=== PATIENT | male | born 1960 ===

== ENCOUNTER 2017-05-24 10:01 | Emergency (ER) | payer OTHER ==
[2017-05-24] MEDS ORDERED: Lidocaine 2% Jelly (Uro-Jet) TOP ONE (11:25)
--- NOTE | 2017-05-24 12:39 | C.PDOC ---
History Of Present Illness 57 year old male presents to the ED for evaluation of rectal pain which began after he had a hard bowel movement yesterday. No bleeding. No abdominal pain, nausea, or vomiting. RECTAL PAIN SINCE YEST S/P HARD BM. NO BLEEDING. 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 NO EXT HEMORRHOID. +HARD STOOL IN VAULT NO BRBPR Time Seen by Provider: 05/24/17 10:45 Chief Complaint (Nursing): GI Problem History Per: Patient History/Exam Limitations: no limitations Onset/Duration Of Symptoms: Hrs Current Symptoms Are (Timing): Still Present Additional History Per: Patient Past Medical History Reviewed: Historical Data, Nursing Documentation, Vital Signs Vital Signs: Last Vital Signs Temp 97.5 F L 05/24/17 12:58 Pulse 52 L 05/24/17 12:58 Resp 18 05/24/17 12:58 BP 130/68 05/24/17 12:58 Pulse Ox 99 05/24/17 12:58 - Medical History PMH: No Chronic Diseases Surgical History: No Surg Hx Family History: States: Unknown Family Hx - Social History Hx Tobacco Use: Yes (sometimes) Hx Alcohol Use: Yes Hx Substance Use: No - Immunization History Hx Tetanus Toxoid Vaccination: No Hx Influenza Vaccination: No Hx Pneumococcal Vaccination: No Review Of Systems Gastrointestinal: Positive for: Rectal Pain. Negative for: Nausea, Vomiting, Abdominal Pain Physical Exam - Physical Exam Appears: Non-toxic, No Acute Distress Skin: Normal Color, Warm, Dry Oral Mucosa: Moist Gastrointestinal/Abdominal: Soft, No Tenderness, No Guarding, No Rebound Rectal: No Hemorrhoids (external ), Other (hard stool in vault no bright red blood per rectum. RN Outlaw supplemental nurse ) Extremity: Normal ROM, Capillary Refill (less than 2 seconds) Neurological/Psych: Oriented x3, Normal Speech, Normal Cognition Gait: Steady ED Course And Treatment O2 Sat by Pulse Oximetry: 97 (on RA) Pulse Ox Interpretation: Normal Progress Note: Xylocaine TOP administered. Disposition Counseled Patient/Family Regarding: Diagnosis, Need For Followup, Rx Given - Disposition Referrals: [facility] [Outside] [facility] [Outside] Disposition: HOME/ ROUTINE Disposition Time: 12:36 Condition: GOOD Prescriptions: Docusate Sodium [Colace] 100 mg PO BID PRN #30 capsule PRN Reason: Constipation Glycerin [Glycerin Adult Suppository] 1 sup RC DAILY PRN #30 sup PRN Reason: Constipation Magnesium Citrate [Good [facility] Magnesium Citrate] 300 ml PO ONCE #1 bottle Instructions: Constipation (ED), High Fiber Diet (ED) Forms: [employer] (Malay) Print Language: ESTONIAN - Clinical Impression Clinical Impression: Constipated, Rectal pain - Scribe Statement The provider has reviewed the documentation as recorded by the Scribe (Shea Ahmadi) Provider Attestation: All medical record entries made by the Scribe were at my direction and personally dictated by me. I have reviewed the chart and agree that the record accurately reflects my personal performance of the history, physical exam, medical decision making, and the department course for this patient. I have also personally directed, reviewed, and agree with the discharge instructions and disposition.
[2017-05-24 12:58] VITALS: BP 130/68; PULSE 52; RESP 18; TEMP 97.5
[2017-05-24 13:39] VITALS: O2SAT 97
== END 2017-05-24 13:15 | disposition home or self-care (01) ==
LOC: C.ER 10:01
DX: K59.00 Constipation, unspecified (principal); K62.89 Other specified diseases of anus and rectum

== ENCOUNTER 2018-07-04 11:31 | Emergency (ER) | payer SELFPAY ==
[2018-07-04 11:43] VITALS: TEMP 98.2
--- NOTE | 2018-07-04 13:26 | RAD ---
Date of service: 07/04/2018 PROCEDURE: Radiographs of the Lumbar Spine. HISTORY: r/o fx COMPARISON: Lumbar spine radiographs performed 01/16/14 FINDINGS: BONES: Scoliosis. No listhesis. Multilevel degenerative changes including small anterior osteophyte formation. No acute displaced fracture identified. DISC SPACES: Intervertebral disc space narrowing most prominent at L3-L4 OTHER FINDINGS: Atherosclerotic calcification of the aorta. IMPRESSION: Multilevel degenerative changes. Scoliosis.
[2018-07-04 13:34] VITALS: BP 128/72; PULSE 68; RESP 18; O2SAT 98
--- NOTE | 2018-07-04 16:50 | C.PDOC ---
History Of Present Illness 58 year old male presents to the emergency department with complaints of lower back pain for approximately one week. Patient states that he intermittently received spinal injections. He denies physical trauma, falls, bowel/bladder incontinence, or saddle anesthesia. Time Seen by Provider: 07/04/18 11:48 Chief Complaint (Nursing): Back Pain History Per: Patient History/Exam Limitations: no limitations Onset/Duration Of Symptoms: Other (1 week) Current Symptoms Are (Timing): Still Present Quality Of Discomfort: "Pain" Associated Symptoms: denies: Incontinence, New Weakness, New Numbness Past Medical History Reviewed: Historical Data, Nursing Documentation, Vital Signs Vital Signs: Last Vital Signs Temp 98.2 F 07/04/18 11:41 Pulse 68 07/04/18 13:33 Resp 18 07/04/18 13:33 BP 128/72 07/04/18 13:33 Pulse Ox 98 07/04/18 13:33 - Medical History PMH: No Chronic Diseases Surgical History: No Surg Hx Family History: States: No Known Family Hx - Social History Hx Tobacco Use: Yes (sometimes) Hx Alcohol Use: Yes Hx Substance Use: No - Immunization History Hx Tetanus Toxoid Vaccination: No Hx Influenza Vaccination: No Hx Pneumococcal Vaccination: No Review Of Systems Except As Marked, All Systems Reviewed And Found Negative. Constitutional: Negative for: Fever, Chills Genitourinary: Negative for: Dysuria, Frequency, Incontinence, Hematuria Musculoskeletal: Positive for: Back Pain Neurological: Negative for: Weakness, Numbness, Other (saddle anesthesia) Physical Exam - Physical Exam Appears: Well, Non-toxic, No Acute Distress Skin: Normal Color, Warm, Dry Head: Atraumatic, Normacephalic Eye(s): bilateral: Normal Inspection, PERRL, EOMI Neck: Normal, Supple Chest: Symmetrical, No Tenderness Back: No Vertebral Tenderness (midline), Other (hypertonicity of the lumbar musculature) Extremity: Bilateral: Atraumatic, Normal Color And Temperature, Normal ROM Neurological/Psych: Oriented x3, Normal Speech, Normal Motor, Normal Sensation ED Course And Treatment O2 Sat by Pulse Oximetry: 98 (RA) Pulse Ox Interpretation: Normal - Other Rad XR LS Spine AP/LAT X-Ray: Viewed By Me, Read By Radiologist Interpretation: IMPRESSION: Multilevel degenerative changes. Scoliosis. Medical Decision Making Medical Decision Making: Plan: Toradol 60mg IM XR LS Spine AP/LAT Disposition - Disposition Referrals: [facility] [Outside] [facility] [Outside] Disposition: HOME/ ROUTINE Disposition Time: 13:00 Condition: GOOD Additional Instructions: TELLY CRUZ, thank you for letting us take care of you today. Your provider was Marty Garcia DO and you were treated for BACK PAIN. The emergency medical care you received today was directed at your acute symptoms. If you were prescribed any medication, please fill it and take as directed. It may take several days for your symptoms to resolve. Return to the Emergency Department if your symptoms worsen, do not improve, or if you have any other problems. Please contact your doctor or call one of the physicians/clinics you have been referred to that are listed on the Patient Visit Information form that is included in your discharge packet. Bring any paperwork you were given at discharge with you along with any medications you are taking to your follow up visit. Our treatment cannot replace ongoing medical care by a primary care provider outside of the emergency department. Thank you for allowing the [facility] team to be part of your care today. Follow up with your primary care doctor or the clinic this week for re- evaluation and further management. TELLY CRUZ, marina por dejarnos cuidar de usted hoy. Diaz proveedor fue Marty Garcia DO y recibi tratamiento para el [facility]. La atencin mdica de emergencia que recibi hoy se dirigi a elizabeth sntomas agudos. Si le recetaron algn medicamento, llnelo y tmelo segn las indicaciones. Los sntomas pueden tardar varios bustillos en resolverse. Regrese al Departamento de Emergencias si elizabeth sntomas empeoran, no mejoran o si tiene otros problemas. Comunquese con diaz mdico o llame a fang de los mdicos / clnicas a los que soto sido referido que figuran en el formulario de Informacin de visita al paciente que se incluye en diaz paquete de lee. Lleve todos los documentos que le entregaron al momento del lee junto con todos los medicamentos que est tomando para diaz visita de seguimiento. Nuestro tratamiento no puede reemplazar la atencin mdica continua por un proveedor de atencin primaria fuera del departamento de emergencias. Marina por permitir que el equipo de [facility] sea parte de diaz atencin hoy. Nithin un seguimiento con diaz mdico de atencin primaria o con la clnica esta semana para vernon reevaluacin y manejo adicional. Prescriptions: Cyclobenzaprine [Cyclobenzaprine HCl] 10 mg PO Q8 PRN #20 tab PRN Reason: Muscle Spasm Ibuprofen [Motrin] 600 mg PO Q6 PRN #20 tab PRN Reason: Pain, Moderate (4-7) Instructions: Low Back Pain (DC) Forms: Dr Lal [employer] (Equatorial [place]inean) Print Language: GERMAN - Clinical Impression Clinical Impression: Low back pain - Scribe Statement The provider has reviewed the documentation as recorded by the Scribe (Juan C Miranda) Provider Attestation: All medical record entries made by the Scribe were at my direction and personally dictated by me. I have reviewed the chart and agree that the record accurately reflects my personal performance of the history, physical exam, medical decision making, and the department course for this patient. I have also personally directed, reviewed, and agree with the discharge instructions and disposition.
== END 2018-07-04 13:34 | disposition home or self-care (01) ==
LOC: C.ER 11:31
DX: M54.5 Low back pain (principal); Z72.0 Tobacco use
CPT/HCPCS: 72100; 96372; 99283; J1885